=== PATIENT | male | born 1960 ===

== ENCOUNTER 2023-08-31 12:02 | Outpatient (AMB) | payer OTHER, SELFPAY ==
--- NOTE | 2023-08-31 13:03 | MHC.OFFWIV ---
Intake Vital Signs 08/31/23 13:04 Height 5 ft 6.5 in Weight 183 lb BMI 29.1 BP 128/76 Blood Pressure Location Rt brachial Position Sitting Pulse 76 Pulse Source Pulse Oximeter Temp 97.8 F Temp Source Temporal Artery Scan Pulse Oximetry (%) 98 Oxygen Delivery Method Room Air Intake Visit Reasons: EP Face swelling Intake Note: pt is here for c/o face swelling due to possible infected tooth Patient Tobacco Use Status: Never used Tobacco Allergies No Known Allergies Allergy (Verified 08/31/23 13:50) Medication List - Last Reconciled 08/31/23 by Chao Ramsey MD lisinopril 10 mg PO DAILY Do you need a note to return to daycare/school/sports/work: Yes HPI EP Face swelling HPI Details 62-year-old male presents to the office for a sick visit. Patient is reporting a swelling on the left side of his face and jaw. He chewing food on the left side of the mouth is painful. No fevers or chills. PFSH Social History Patient Tobacco Use Status: Never used Tobacco Physical Exam Vital Signs: Last Vital Signs Temp 97.8 F 08/31/23 13:04 Pulse 76 08/31/23 13:04 BP 128/76 08/31/23 13:04 Pulse Ox 98 08/31/23 13:04 Oxygen Delivery Method Room Air 08/31/23 13:04 BMI result Body Mass Index 29.1 HEENT Other: Face: Maxillary area swelling. Minimal discomfort on palpation. Oral cavity: Tenderness along the gingiva on the left side of teeth. Assessment & Plan Assessment & Plan (1) Cellulitis diffuse, face: Code(s): L03.211 - Cellulitis of face Plan: Cephalexin and meloxicam called in. Patient was encouraged to see a dentist. Coding Level of Care Code Est Pt Level 3 (80963) Diagnoses Cellulitis diffuse, face L03.211
[2023-08-31 13:04] VITALS: BP 128/76; PULSE 76; TEMP 36.6; O2SAT 98; BMI 29.1
== END 2023-08-31 15:00 | disposition home or self-care (01) ==
PROVIDERS: Visit Provider Internal Medicine
DX: L03.211 Cellulitis of face (principal)
CPT/HCPCS: 99213